=== PATIENT | female | born 1980 | race African-American/Black ===

== ENCOUNTER 2017-02-28 13:50 | Emergency (ER) | payer OTHER ==
[~2017-02-28 13:50] MED LIST: DENIES HOME MEDS; L20 PO; MICRO-K10 MEQ PO
[2017-02-28 15:04] LABS: ASCORBIC ACID (UR NOT ORDER) NEG (NEG); BILIRUBIN, URINE NEGATIVE (NEG); ER URINALYSIS TAT 0 Hrs 16 Mins; KETONE, URINE NEGATIVE (NEG); NITRITE (URINE) NEG (NEG); WBC (NOT ORDERED) (RFLEX) 2 (0-5)
[2017-02-28 15:05] LABS: LEUKOCYTE ESTERASE(NOT OR TRACE (NEG)
[2017-02-28 15:28] LABS: BASOPHILS 0.4 %; BASOPHILS ABSOLUTE 0.04 10/3/uL (0.0-0.16); EOSINOPHILS 2.3 %; EOSINOPHILS ABSOLUTE 0.26 10/3/uL (0.0-0.53); ER CBC TAT 0 Hrs 03 Mins; HEMATOCRIT 38.9 % (36.0-48.0); IMMATURE GRANULOCYTES 0.4 %; IMMATURE GRANULOCYTES ABSOLUTE 0.04 10/3/uL (0.0-0.11); LYMPHOCYTES 28.6 %; LYMPHOCYTES ABSOLUTE 3.25 10/3/uL (0.67-4.30); MEAN CORPUS HGB CONC 33.4 g/dL (32.0-36.0); MEAN CORPUSCULAR HEMOGLOB 28.4 pg (26.0-34.0); MEAN CORPUSCULAR VOLUME 85.1 fL (80-100); MEAN PLATELET VOLUME 9.8 fL (9.2-13.0); MONOCYTES 6.3 %; MONOCYTES ABSOLUTE 0.72 10/3/uL (0.21-1.20); NEUTROPHILS ABSOLUTE 7.04 10/3/uL (2.02-8.40); PLATELET COUNT 314 10/3/uL (150-400); RBC DISTRIBUTION WIDTH 13.9 % (12.0-16.0); RED CELL COUNT 4.57 10/6/uL (4.0-5.6); WHITE BLOOD CELLS 11.4 10/3/uL (4.5-10.5)
[2017-02-28 15:29] LABS: MANUAL DIFF NO %
[2017-02-28 15:43] LABS: A/G RATIO 0.9 (0.7-1.9); ALBUMIN 3.6 G/DL (3.5-5.0); ALKALINE PHOSPHATASE 80 U/L (45-117); BUN (BLOOD UREA NITROGEN) 8 MG/DL (6-23); CALCIUM, SERUM 8.5 MG/DL (8.5-10.4); CHLORIDE, SERUM 108 MMOL/L (96-112); CO2 (CARBON DIOXIDE) 26 MMOL/L (24-34); GFR AFRICAN AMERICAN 134 ML/MIN (>=60); GFR NON AFRICAN AMERICAN 116 ML/MIN (>=60); GLUCOSE, SERUM 79 MG/DL (60-99); POTASSIUM, SERUM 3.4 MMOL/L (3.5-5.3); SGOT(AST) 81 U/L (5-40); SGPT(ALT) 78 U/L (5-65); SODIUM, SERUM 143 MMOL/L (135-148); TOTAL BILIRUBIN 0.1 MG/DL (0-1.2); TOTAL PROTEIN 7.6 G/DL (6.0-8.5)
== END 2017-02-28 16:33 | disposition home or self-care (01) ==
LOC: ER 13:50
PROVIDERS: Emergency Medicine
DX: A04.7 Enterocolitis due to Clostridium difficile (principal); R53.1 Weakness; Z91.040 Latex allergy status; Z79.899 Other long term (current) drug therapy
CPT/HCPCS: 80053; 81001; 85025; 99284

== ENCOUNTER 2017-03-30 23:58 | Emergency (ER) | payer OTHER ==
[2017-03-30 22:33] LABS: BASOPHILS 0.2 %; BASOPHILS ABSOLUTE 0.02 10/3/uL (0.0-0.16); EOSINOPHILS 1.5 %; EOSINOPHILS ABSOLUTE 0.15 10/3/uL (0.0-0.53); ER CBC TAT 0 Hrs 07 Mins; HEMATOCRIT 36.9 % (36.0-48.0); HEMOGLOBIN 12.4 g/dL (12.0-16.0); IMMATURE GRANULOCYTES 0.3 %; IMMATURE GRANULOCYTES ABSOLUTE 0.03 10/3/uL (0.0-0.11); LYMPHOCYTES 30.2 %; LYMPHOCYTES ABSOLUTE 3.04 10/3/uL (0.67-4.30); MEAN CORPUS HGB CONC 33.6 g/dL (32.0-36.0); MEAN CORPUSCULAR VOLUME 86.4 fL (80-100); MEAN PLATELET VOLUME 10.2 fL (9.2-13.0); MONOCYTES 7.7 %; MONOCYTES ABSOLUTE 0.77 10/3/uL (0.21-1.20); NEUTROPHILS 60.1 %; NEUTROPHILS ABSOLUTE 6.04 10/3/uL (2.02-8.40); PLATELET COUNT 270 10/3/uL (150-400); RBC DISTRIBUTION WIDTH 14.3 % (12.0-16.0); RED CELL COUNT 4.27 10/6/uL (4.0-5.6); WHITE BLOOD CELLS 10.1 10/3/uL (4.5-10.5)
[2017-03-30 22:36] LABS: MANUAL DIFF NO %
[2017-03-30 22:49] LABS: ALBUMIN 3.6 G/DL (3.5-5.0); ALKALINE PHOSPHATASE 76 U/L (45-117); BUN (BLOOD UREA NITROGEN) 9 MG/DL (6-23); CALCIUM, SERUM 8.8 MG/DL (8.5-10.4); CHLORIDE, SERUM 109 MMOL/L (96-112); CO2 (CARBON DIOXIDE) 30 MMOL/L (24-34); CREATININE 0.65 MG/DL (0.55-1.02); GFR AFRICAN AMERICAN 131 ML/MIN (>=60); GFR NON AFRICAN AMERICAN 113 ML/MIN (>=60); GLOBULIN 3.7 G/DL (2.5-4.1); GLUCOSE, SERUM 85 MG/DL (60-99); POTASSIUM, SERUM 3.5 MMOL/L (3.5-5.3); SGOT(AST) 20 U/L (5-40); SGPT(ALT) 36 U/L (5-65); SODIUM, SERUM 143 MMOL/L (135-148); TOTAL BILIRUBIN 0.1 MG/DL (0-1.2); TOTAL PROTEIN 7.3 G/DL (6.0-8.5)
[2017-03-31 01:03] LABS: ASCORBIC ACID (UR NOT ORDER) NEG (NEG); BILIRUBIN, URINE NEGATIVE (NEG); ER URINALYSIS TAT 0 Hrs 03 Mins; KETONE, URINE NEGATIVE (NEG); LEUKOCYTE ESTERASE(NOT OR TRACE (NEG); NITRITE (URINE) NEG (NEG); WBC (NOT ORDERED) (RFLEX) 3 (0-5)
== END 2017-03-31 03:09 | disposition home or self-care (01) ==
LOC: ER 23:58
PROVIDERS: Emergency Medicine
DX: K58.9 Irritable bowel syndrome, unspecified (principal); F17.200 Nicotine dependence, unspecified, uncomplicated; Z91.040 Latex allergy status; Z79.899 Other long term (current) drug therapy
CPT/HCPCS: 74176; 80053; 81001; 83605; 83690; 85025; 99284